=== PATIENT | male | born 1975 | race Caucasian/White ===

== ENCOUNTER 2020-05-05 11:16 | Emergency (ER) | payer OTHER ==
[~2020-05-05] VITALS: Ht 172.7 cm; Wt 80.3 kg
[2020-05-05 11:19] VITALS: BP 156/100; Ht 172.7 cm; Wt 80.3 kg
== END 2020-05-05 12:14 | disposition home or self-care (01) ==
LOC: ED 11:16
DX: S29.012A Strain of muscle and tendon of back wall of thorax, initial encounter (principal); S39.012A Strain of muscle, fascia and tendon of lower back, initial encounter; E11.9 Type 2 diabetes mellitus without complications; F17.210 Nicotine dependence, cigarettes, uncomplicated; V49.49XA Driver injured in collision with other motor vehicles in traffic accident, initial encounter; Y93.I9 Activity, other involving external motion; Y92.488 Other paved roadways as the place of occurrence of the external cause; Y99.8 Other external cause status
CPT/HCPCS: 99406

== ENCOUNTER 2020-06-10 14:29 | Emergency (ER) | payer OTHER ==
[~2020-06-10] VITALS: Ht 170.2 cm; Wt 81.6 kg
[2020-06-10 14:40] VITALS: Ht 170.2 cm; Wt 81.6 kg
[2020-06-10 16:00] LABS: BASOPHIL % 0.6 % (0-2); PLATELET COUNT 216 x10^3mcL (130-400); RED CELL DISTRIBUTION WIDTH 12.7 % (11.5-14.5)
[2020-06-10 16:13] LABS: CALCIUM 8.7 mg/dL (8.5-10.1); CARBON DIOXIDE 28.8 mmol/L (21-32); CHLORIDE SERUM 97 mmol/L (98-107); CREATININE SERUM 0.9 mg/dL (0.7-1.3); GFR1 > 60 mL/min; GLUCOSE SERUM 340 mg/dL (74-106); POTASSIUM SERUM 4.1 mmol/L (3.5-5.1); SODIUM SERUM 135 mmol/L (136-145)
[2020-06-10 16:18] LABS: ALKALINE PHOSPHATASE 75 U/L (46-116); ALT/SGPT 32 U/L (16-63); AST/SGOT 14 U/L (15-37); BILIRUBIN TOTAL 0.7 mg/dL (0.20-1.00); TOTAL PROTEIN, SERUM 7.1 g/dL (6.4-8.2)
[2020-06-10 17:09] VITALS: BP 118/91
== END 2020-06-10 17:09 | disposition home or self-care (01) ==
LOC: ED 14:29
PROVIDERS: Emergency Medicine
DX: S22.089A Unspecified fracture of T11-T12 vertebra, initial encounter for closed fracture (principal); E11.65 Type 2 diabetes mellitus with hyperglycemia; V43.52XA Car driver injured in collision with other type car in traffic accident, initial encounter; Y93.I9 Activity, other involving external motion; Y92.488 Other paved roadways as the place of occurrence of the external cause; Y99.8 Other external cause status
CPT/HCPCS: 82962

== ENCOUNTER 2021-01-08 15:28 | Emergency (ER) | payer SELFPAY ==
[~2021-01-08] VITALS: Ht 167.6 cm; Wt 79.8 kg
[2021-01-08 15:34] VITALS: Ht 167.6 cm; Wt 79.8 kg
[2021-01-08 17:28] VITALS: BP 133/95
== END 2021-01-08 17:28 | disposition home or self-care (01) ==
LOC: ED 15:28
DX: M54.9 Dorsalgia, unspecified (principal); G89.29 Other chronic pain; E11.9 Type 2 diabetes mellitus without complications
CPT/HCPCS: J1885